=== PATIENT | male | born 1970 | race Caucasian/White ===

== ENCOUNTER 2018-05-22 10:26 | Emergency (ER) | payer MEDICARE, OTHER ==
[2018-05-22 10:46] VITALS: RESP 18; TEMP 98.3
[2018-05-22] MEDS ORDERED: KETOROLAC 60 MG/2 ML VIAL IM STA (11:15)
[2018-05-22] MEDS ORDERED: DIAZEPAM 5 MG/ML 2 ML INJ IM ONE (11:15)
--- NOTE | 2018-05-22 11:28 | ED ---
General Adult HPI - General Chief complaint: Neck Pain/Injury Stated complaint: Fell back injury Time Seen by Provider: 05/22/18 10:45 Source: patient, RN notes reviewed Mode of arrival: ambulatory Limitations: no limitations - History of Present Illness Initial comments: This is a 48-year-old male who presents emergency Department complaining of paraspinous muscles of the neck and mid back are sore after he slipped in a store yesterday. Patient states he did not fall but he twisted his back and since then it's been painful. Patient states it hurts to twist or turn or bend his neck per patient denies any numbness or weakness. Patient denies any focal neurologic deficit at all. Patient denies any central spinal pain in the neck or back. Patient denies any other injury. - Related Data Previous Rx's Medication Instructions Recorded Cyclobenzaprine [Flexeril] 10 mg PO TID #20 tab 05/22/18 Ketorolac [Toradol] 10 mg PO Q6HR #15 tab 05/22/18 Allergies Allergy/AdvReac Type Severity Reaction Status Date / Time No Known Allergies Allergy Verified 05/22/18 10:46 Review of Systems ROS Statement: Those systems with pertinent positive or pertinent negative responses have been documented in the HPI. ROS Other: All systems not noted in ROS Statement are negative. Past Medical History Past Medical History: Asthma, Hypertension Additional Past Medical History / Comment(s): chronic neck and back pain History of Any Multi-Drug Resistant Organisms: None Reported Additional Past Surgical History / Comment(s): testicular surgery Past Psychological History: Anxiety, Depression Smoking Status: Current every day smoker Past Alcohol Use History: Occasional Past Drug Use History: Marijuana General Exam - General Exam Comments Initial Comments: GENERAL: Patient is well-developed and well-nourished. Patient is nontoxic and well- hydrated and is in mild distress. ENT: Neck is soft and supple. No significant lymphadenopathy is noted. Oropharynx is clear. Moist mucous membranes. Neck has full range of motion without eliciting any pain. Patient was neck is tender in the paraspinous muscles on the left side of the neck. EYES: The sclera were anicteric and conjunctiva were pink and moist. Extraocular movements were intact and pupils were equal round and reactive to light. Eyelids were unremarkable. PULMONARY: Unlabored respirations. Good breath sounds bilaterally. No audible rales rhonchi or wheezing was noted. CARDIOVASCULAR: There is a regular rate and rhythm without any murmurs gallops or rubs. ABDOMEN: Soft and nontender with normal bowel sounds. No palpable organomegaly was noted. There is no palpable pulsatile mass. SKIN: Skin is clear with no lesions or rashes and otherwise unremarkable. NEUROLOGIC: Patient is alert and oriented x3. Cranial nerves II through XII are grossly intact. Motor and sensory are also intact. Normal speech, volume and content. Symmetrical smile. MUSCULOSKELETAL: Normal extremities with adequate strength and full range of motion. No lower extremity swelling or edema. No calf tenderness. Patient has some tenderness in the paraspinous muscles on the right side of the spine in the mid thoracic region. LYMPHATICS: No significant lymphadenopathy is noted PSYCHIATRIC: Normal psychiatric evaluation. Limitations: no limitations Course Vital Signs 05/22/18 10:43 Temperature 98.3 F Pulse Rate 71 Respiratory 18 Rate Blood Pressure 148/98 O2 Sat by Pulse 98 Oximetry Disposition Clinical Impression: Cervical strain, Thoracic myofascial strain Disposition: HOME SELF-CARE Condition: Good Instructions (If sedation given, give patient instructions): Cervical Strain ( ED) Prescriptions: Cyclobenzaprine [Flexeril] 10 mg PO TID #20 tab Ketorolac [Toradol] 10 mg PO Q6HR #15 tab Is patient prescribed a controlled substance at d/c from ED?: No Referrals: None,Stated [Primary Care Provider] - 1-2 days Time of Disposition: 11:27
[2018-05-22 12:19] VITALS: BP 137/88; PULSE 64
== END 2018-05-22 12:18 | disposition home or self-care (01) ==
LOC: EC 10:26
DX: S16.1XXA Strain of muscle, fascia and tendon at neck level, initial encounter (principal); S29.012A Strain of muscle and tendon of back wall of thorax, initial encounter; F17.200 Nicotine dependence, unspecified, uncomplicated; X50.1XXA Overexertion from prolonged static or awkward postures, initial encounter; Y93.89 Activity, other specified; Y92.512 Supermarket, store or market as the place of occurrence of the external cause
CPT/HCPCS: 99283; 96372 ×2; J3360; J1885

== ENCOUNTER 2018-06-11 09:46 | Emergency (ER) | payer MEDICARE, OTHER ==
[2018-06-11] MEDS ORDERED: IPRATROPIUM-ALBUTEROL 3 ML NEB INHALATION STA (10:04)
[2018-06-11] MEDS ORDERED: ALBUTEROL NEBULIZED 2.5 MG/3 ML INHALATION STA (10:04)
[2018-06-11] MEDS ORDERED: DEXAMETHASONE SOD PHOSPHATE 10 MG/ML 1 ML VIAL IM STA (10:04)
--- NOTE | 2018-06-11 10:21 | ED ---
General Adult HPI - General Chief complaint: Shortness of Breath Stated complaint: SOB/asthma Time Seen by Provider: 06/11/18 09:59 Source: patient, RN notes reviewed, old records reviewed Mode of arrival: ambulatory Limitations: no limitations - History of Present Illness Initial comments: 48-year-old male history of asthma presenting for evaluation of cough, dyspnea, URI symptoms. Patient's symptoms have been present for the past one week. He endorses rhinorrhea, sore throat, myalgias and subjective fever and chills. He's had cough and central chest congestion. No central chest pain, no radiating chest pain. No history of CAD, history of hypertension and asthma. He is a current smoker. Symptoms have been present for one week. Patient e ndorses similar symptoms on an annual basis around this time of year. - Related Data Home Medications Medication Instructions Recorded Confirmed Albuterol Inhaler [Ventolin Hfa 1 - 2 puff INHALATION RT-Q6H PRN 06/11/18 06/11/18 Inhaler] Lisinopril [Zestril] 10 mg PO DAILY 06/11/18 06/11/18 Previous Rx's Medication Instructions Recorded Cyclobenzaprine [Flexeril] 10 mg PO TID #20 tab 05/22/18 Ketorolac [Toradol] 10 mg PO Q6HR #15 tab 05/22/18 Albuterol Inhaler [Ventolin Hfa 1 - 2 puff INHALATION Q4HR PRN #1 06/11/18 Inhaler] inhaler Azithromycin [Zithromax Z-pack] 0 mg PO DIRECTED #6 tab 06/11/18 predniSONE 50 mg PO DAILY #5 tab 06/11/18 Allergies Allergy/AdvReac Type Severity Reaction Status Date / Time No Known Allergies Allergy Verified 06/11/18 10:15 Review of Systems ROS Statement: Those systems with pertinent positive or pertinent negative responses have been documented in the HPI. ROS Other: All systems not noted in ROS Statement are negative. Past Medical History Past Medical History: Asthma, Hypertension Additional Past Medical History / Comment(s): chronic neck and back pain History of Any Multi-Drug Resistant Organisms: None Reported Additional Past Surgical History / Comment(s): testicular surgery Past Psychological History: Anxiety, Depression Smoking Status: Current every day smoker Past Alcohol Use History: Occasional Past Drug Use History: Marijuana General Exam Limitations: no limitations General appearance: alert, in no apparent distress Head exam: Present: atraumatic, normocephalic Eye exam: Present: normal appearance, PERRL ENT exam: Present: mucous membranes moist. Absent: normal oropharynx (Cabrera e rythema, no tonsillar swelling or exudate, bilateral nasal congestion) Neck exam: Present: normal inspection. Absent: tenderness, meningismus Respiratory exam: Present: wheezes, rhonchi, decreased breath sounds. Absent: respiratory distress, accessory muscle use Cardiovascular Exam: Present: regular rate, normal rhythm GI/Abdominal exam: Present: soft. Absent: distended, tenderness, guarding Extremities exam: Present: normal inspection, normal capillary refill. Absent: pedal edema, calf tenderness Neurological exam: Present: alert, oriented X3, CN II-XII intact. Absent: motor sensory deficit Psychiatric exam: Present: normal affect, normal mood Skin exam: Present: warm, dry, intact. Absent: cyanosis, diaphoretic Course Vital Signs 06/11/18 06/11/18 06/11/18 09:49 10:35 10:52 Temperature 97.9 F Pulse Rate 82 88 88 Respiratory 18 Rate Blood Pressure 136/78 O2 Sat by Pulse 95 Oximetry Medical Decision Making - Medical Decision Making 30-year-old male history of asthma, current smoker presenting with 1 week of URI symptoms, cough. Patient has bilateral wheezing and rhonchi on exam. No respiratory distress. Chest x-ray negative for focal pneumonia. After albuterol, Atrovent, Decadron, he is feeling better with improved air entry. Will be discharged with steroids, albuterol, and antibiotic. Please return with worsening or changing symptoms. Disposition Clinical Impression: Asthma with exacerbation, Bronchitis Disposition: HOME SELF-CARE Condition: Good Instructions (If sedation given, give patient instructions): Asthma (ED), Acute Bronchitis (ED) Prescriptions: predniSONE 50 mg PO DAILY #5 tab Albuterol Inhaler [Ventolin Hfa Inhaler] 1 - 2 puff INHALATION Q4HR PRN #1 inhaler PRN Reason: Shortness Of Breath Azithromycin [Zithromax Z-pack] 0 mg PO DIRECTED #6 tab Is patient prescribed a controlled substance at d/c from ED?: No Referrals: Nonstaff,Physician [REFERRING] - 1-2 days Tejal Seanz MD [STAFF PHYSICIAN] - 1-2 days Time of Disposition: 10:57
--- NOTE | 2018-06-11 10:27 | XR ---
EXAMINATION TYPE: XR chest 2V DATE OF EXAM: 06/11/2018 COMPARISON: NONE HISTORY: Cough and congestion for 2 days. TECHNIQUE: Frontal and lateral views of the chest are obtained. FINDINGS: There is no focal air space opacity, pleural effusion, or pneumothorax seen. The cardiac silhouette size is within normal limits. The osseous structures are intact. IMPRESSION: No suspicious acute infiltrate.
[2018-06-11 11:22] VITALS: BP 121/76; PULSE 82; RESP 20; TEMP 98
== END 2018-06-11 11:22 | disposition home or self-care (01) ==
LOC: EC 09:46
DX: J45.901 Unspecified asthma with (acute) exacerbation (principal); I10 Essential (primary) hypertension; F17.200 Nicotine dependence, unspecified, uncomplicated; Z79.899 Other long term (current) drug therapy
CPT/HCPCS: 94640; 71046; 99285; 96372; J1100